=== PATIENT | female | born 1970 | race Native Hawaiian/Other Pacific Islander ===

== ENCOUNTER 2017-07-25 08:45 | Emergency (ER) | payer OTHER ==
[~2017-07-25] VITALS: Ht 157.5 cm; Wt 54.4 kg
[2017-07-25 09:32] VITALS: BP 170/71; TEMP 97.2
== END 2017-07-25 09:35 | disposition home or self-care (01) ==
LOC: ED 08:45
DX: B34.9 Viral infection, unspecified (principal)
CPT/HCPCS: 99282

== ENCOUNTER 2017-10-23 08:22 | Emergency (ER) | payer OTHER ==
[~2017-10-23] VITALS: Ht 157.5 cm; Wt 61.2 kg
[2017-10-23 08:30] VITALS: TEMP 98
[2017-10-23 11:10] VITALS: BP 168/78
== END 2017-10-23 11:13 | disposition home or self-care (01) ==
LOC: ED 08:22
DX: M71.21 Synovial cyst of popliteal space [Baker], right knee (principal)
CPT/HCPCS: 99283

== ENCOUNTER 2017-11-03 14:15 | Emergency (ER) | payer OTHER ==
[~2017-11-03] VITALS: Ht 157.5 cm; Wt 59.0 kg
[2017-11-03 15:02] LABS: PLATELET COUNT 236 K/uL (152-353)
[2017-11-03 17:20] VITALS: BP 142/74; TEMP 99
== END 2017-11-03 17:20 | disposition home or self-care (01) ==
LOC: ED 14:15
PROVIDERS: Specialist
DX: R78.81 Bacteremia (principal); R51 Headache
CPT/HCPCS: 81000; 85027; 87804; 96361; 96365; 99284; J0696

== ENCOUNTER 2017-11-19 17:32 | Emergency (ER) | payer OTHER ==
[~2017-11-19] VITALS: Ht 157.5 cm; Wt 59.0 kg
[2017-11-19 17:40] VITALS: TEMP 99
[2017-11-19 19:04] LABS: PLATELET COUNT 249 K/uL (152-353)
[2017-11-19 19:16] LABS: POTASSIUM 3.3 mmol/L (3.6-5.2)
[2017-11-19 19:57] VITALS: BP 160/83
== END 2017-11-19 20:00 | disposition home or self-care (01) ==
LOC: ED 17:32
DX: M51.36 Other intervertebral disc degeneration, lumbar region (principal); M81.0 Age-related osteoporosis without current pathological fracture; R10.9 Unspecified abdominal pain
CPT/HCPCS: 36415; 80053; 80307; 81000; 85027; 99283

== ENCOUNTER 2018-01-27 12:32 | Emergency (ER) | payer OTHER ==
[~2018-01-27] VITALS: Ht 157.5 cm; Wt 59.0 kg
[2018-01-27 12:36] VITALS: TEMP 98.3
[2018-01-27 14:09] VITALS: BP 169/99
== END 2018-01-27 14:10 | disposition home or self-care (01) ==
LOC: ED 12:32
DX: M54.2 Cervicalgia (principal)
CPT/HCPCS: 96372; 99283; J2360

== ENCOUNTER 2018-10-23 11:54 | Emergency (ER) | payer OTHER ==
[~2018-10-23] VITALS: Ht 157.5 cm; Wt 59.0 kg
[2018-10-23 12:04] VITALS: TEMP 97.5
[2018-10-23 12:38] VITALS: BP 144/82
== END 2018-10-23 12:38 | disposition home or self-care (01) ==
LOC: ED 11:54
DX: M54.2 Cervicalgia (principal); M50.30 Other cervical disc degeneration, unspecified cervical region
CPT/HCPCS: 99282

== ENCOUNTER 2018-12-18 08:59 | Outpatient (CLI) | payer OTHER | END 2018-12-18 19:50 | disposition home or self-care (01) | LOC: RAD 08:59 | DX: M51.36 Other intervertebral disc degeneration, lumbar region (principal); M54.2 Cervicalgia; M25.569 Pain in unspecified knee; M54.5 Low back pain; R10.9 Unspecified abdominal pain; M79.643 Pain in unspecified hand; M25.539 Pain in unspecified wrist; M79.603 Pain in arm, unspecified; I10 Essential (primary) hypertension; F81.9 Developmental disorder of scholastic skills, unspecified; G47.00 Insomnia, unspecified ==

== ENCOUNTER 2019-04-27 15:53 | Emergency (ER) | payer OTHER ==
[~2019-04-27] VITALS: Ht 157.5 cm; Wt 61.2 kg
[~2019-04-27 15:53] MED LIST: LISI10TA11 PO
[2019-04-27 16:00] VITALS: BP 139/91; TEMP 97.2
== END 2019-04-27 17:24 | disposition home or self-care (01) ==
LOC: ED 15:53
DX: T63.301A Toxic effect of unspecified spider venom, accidental (unintentional), initial encounter (principal); L08.9 Local infection of the skin and subcutaneous tissue, unspecified; G89.29 Other chronic pain
CPT/HCPCS: 99282

== ENCOUNTER 2019-07-01 15:19 | Emergency (ER) | payer OTHER ==
[~2019-07-01] VITALS: Ht 157.5 cm; Wt 54.4 kg
[2019-07-01 15:45] LABS: PLATELET COUNT 228 K/uL (152-353)
[2019-07-01 15:53] LABS: POTASSIUM 3.2 mmol/L (3.6-5.2)
[2019-07-01 17:05] VITALS: BP 158/73; TEMP 97.5
== END 2019-07-01 17:05 | disposition home or self-care (01) ==
LOC: ED 15:19
PROVIDERS: Emergency Medicine
DX: J40 Bronchitis, not specified as acute or chronic (principal); J06.9 Acute upper respiratory infection, unspecified
CPT/HCPCS: 80053; 85027; 87502; 87651; 96372; 99283; J0696; J2001

== ENCOUNTER 2020-02-16 14:54 | Emergency (ER) | payer OTHER ==
[~2020-02-16] VITALS: Ht 157.5 cm; Wt 59.0 kg
[2020-02-16 15:03] VITALS: TEMP 98.5
[2020-02-16 16:15] VITALS: BP 160/80
== END 2020-02-16 16:30 | disposition home or self-care (01) ==
LOC: ED 14:54
DX: S93.691A Other sprain of right foot, initial encounter (principal); S90.31XA Contusion of right foot, initial encounter; V89.2XXA Person injured in unspecified motor-vehicle accident, traffic, initial encounter; Y92.89 Other specified places as the place of occurrence of the external cause
CPT/HCPCS: 99282

== ENCOUNTER 2020-07-29 08:02 | Emergency (ER) | payer OTHER ==
[~2020-07-29] VITALS: Ht 157.5 cm; Wt 54.4 kg
[2020-07-29 12:15] VITALS: BP 124/71; TEMP 97.8
== END 2020-07-29 12:15 | disposition home or self-care (01) ==
LOC: ED 08:02
DX: S60.211A Contusion of right wrist, initial encounter (principal); S90.01XA Contusion of right ankle, initial encounter; V49.50XA Passenger injured in collision with unspecified motor vehicles in traffic accident, initial encounter; Y92.89 Other specified places as the place of occurrence of the external cause
CPT/HCPCS: 99283

== ENCOUNTER 2022-07-02 17:54 | Emergency (ER) | payer OTHER ==
[~2022-07-02] VITALS: Ht 157.5 cm; Wt 48.1 kg
[2022-07-02 19:17] VITALS: BP 175/90; TEMP 97.3
== END 2022-07-02 19:17 | disposition home or self-care (01) ==
LOC: ED 17:54
PROC: 2W3RX1Z Immobilization of Left Lower Leg using Splint (ICD-10-PCS; principal; 2022-07-02)
DX: S96.812A Strain of other specified muscles and tendons at ankle and foot level, left foot, initial encounter (principal); W10.8XXA Fall (on) (from) other stairs and steps, initial encounter; Y92.89 Other specified places as the place of occurrence of the external cause
CPT/HCPCS: 99282

== ENCOUNTER 2022-12-25 14:12 | Emergency (ER) | payer OTHER ==
[~2022-12-25] VITALS: Ht 157.5 cm; Wt 59.0 kg
[2022-12-25 14:15] VITALS: TEMP 98
[2022-12-25 14:52] LABS: PLATELET COUNT 247 K/uL (152-353)
[2022-12-25 14:58] LABS: POTASSIUM 3.9 mmol/L (3.6-5.2)
[2022-12-25 15:42] VITALS: BP 142/83
== END 2022-12-25 15:42 | disposition home or self-care (01) ==
LOC: ED 14:12
PROVIDERS: Family Medicine
DX: R10.9 Unspecified abdominal pain (principal); S39.012A Strain of muscle, fascia and tendon of lower back, initial encounter
CPT/HCPCS: 80053; 81002; 85027; 96374; 99284; J2270; J2405